=== PATIENT | female | born 1975 | race Caucasian/White ===

== ENCOUNTER 2016-10-21 11:01 | Emergency (ER) | payer OTHER ==
--- NOTE | 2016-11-06 15:27 | ER ---
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 She felt a pop. She had had several months with discomfort and was told that she had a partial tear in her left knee medial ligament, but she rested it and that was it, but now she is here working, she did something today that caused her to have acute pain in the medial aspect of her knee. She has had left ankle surgery, appendectomy, lap band, , ORIF in the right femur, and hypothyroidism. She takes Motrin, melatonin, and Benadryl. She is half a pack smoker. On examination, I am unable to do the ligament exam due to pain. There is mild swelling. No erythema. The patient's pain is not well controlled. We went ahead and gave her some morphine, but obviously that is not helping. The x-ray does not show any pathology except some spur. She is going to be referred to Dr. Milan for followup, given Percocet for pain control and put on a knee immobilizer with crutches. PT to come and evaluate the patient. CLINICAL IMPRESSION: Left knee pain. Most likely is a ligament issue, unable to diagnose at this time. The patient discharged with followup instructions. NAREN Lima / Darius Garcia MD / sonya JOB #: [id number] CC: Darius Garcia MD, Attending Physician UNKNOWN, Family Physician
== END 2016-10-21 15:29 | disposition home or self-care (01) ==
LOC: ER 11:01
PROC: 2W3RX1Z Immobilization of Left Lower Leg using Splint (ICD-10-PCS; principal; 2016-10-21)
DX: M25.562 Pain in left knee (principal); E03.9 Hypothyroidism, unspecified; F17.210 Nicotine dependence, cigarettes, uncomplicated; Z98.84 Bariatric surgery status; Z90.49 Acquired absence of other specified parts of digestive tract

== ENCOUNTER → 2016-10-21 | Outpatient (CLI) | payer OTHER | END | disposition home or self-care (01) | LOC: RAD.S 16:13 | DX: M25.562 Pain in left knee (principal); M17.12 Unilateral primary osteoarthritis, left knee ==